=== PATIENT | male | born 1980 | race Caucasian/White ===

== ENCOUNTER 2020-01-06 08:39 | Emergency (ER) | payer BC ==
[~2020-01-06] VITALS: Ht 188 cm; Wt 104.5 kg
[2020-01-06 08:42] VITALS: Ht 188 cm; Wt 104.5 kg
[2020-01-06 09:41] LABS: BASOPHIL % 0.7 % (0-2); PLATELET COUNT 226 x10^3mcL (130-400); RED CELL DISTRIBUTION WIDTH 13.4 % (11.5-14.5)
[2020-01-06 10:00] LABS: T3 TOTAL 1.16 ng/mL
[2020-01-06 10:14] LABS: FREE T4 0.92 ng/dL (0.76-1.46); FREE THYROXINE INDEX 2.7 ug/dL (1.4-4.5); T4(THYROXINE) 7.6 ug/dL (4.7-13.3)
[2020-01-06 10:24] LABS: ALBUMIN 4.1 g/dL (3.4-5.0); ALKALINE PHOSPHATASE 75 U/L (46-116); ALT/SGPT 34 U/L (16-63); AST/SGOT 16 U/L (15-37); BILIRUBIN TOTAL 0.44 mg/dL (0.20-1.00); CARBON DIOXIDE 25.2 mmol/L (21-32); CHLORIDE SERUM 105 mmol/L (98-107); CHOLESTEROL 200 mg/dL (<200); CHOLESTEROL/HDL RATIO 3.5; GFR1 > 60 mL/min; GLUCOSE SERUM 118 mg/dL (74-106); HDL CHOLESTEROL 57 mg/dL (40-60); LIPASE 143 IU/L (73-393); POTASSIUM SERUM 3.8 mmol/L (3.5-5.1); SODIUM SERUM 139 mmol/L (136-145); TRIGLYCERIDES 97 mg/dL (<150)
[2020-01-06 12:36] VITALS: BP 132/76
== END 2020-01-06 12:37 | disposition home or self-care (01) ==
LOC: ED 08:39
PROVIDERS: Specialist
DX: R07.89 Other chest pain (principal); M54.9 Dorsalgia, unspecified; I10 Essential (primary) hypertension; J40 Bronchitis, not specified as acute or chronic
CPT/HCPCS: 36415; 83880; 84439; Q0092